=== PATIENT | male | born 1990 | race African-American/Black ===

== ENCOUNTER 2016-07-26 06:50 | Emergency (ER) | payer SELFPAY ==
[2016-07-26 06:52] VITALS: BP 139/86; PULSE 104; RESP 16; TEMP 98; O2SAT 97
== END 2016-07-26 06:55 | disposition left against medical advice (07) ==
LOC: NED 06:50
DX: R25.2 Cramp and spasm (principal); Z53.21 Procedure and treatment not carried out due to patient leaving prior to being seen by health care provider
CPT/HCPCS: 99281